=== PATIENT | female | born 1990 | race Two or more races ===

== ENCOUNTER 2024-11-17 20:52 | Emergency (ER) | payer BC ==
[~2024-11-17] VITALS: Ht 165.1 cm; Wt 76.2 kg
[2024-11-17 21:15] VITALS: PULSE 101; RESP 18; TEMP 98.5
[2024-11-17] MEDS ORDERED: BACTRIM DS TAB1 EACH PO (21:53)
[2024-11-17 22:05] VITALS: BP 119/83; PULSE 101; RESP 18; TEMP 98.5; O2SAT 99
== END 2024-11-17 22:05 | disposition home or self-care (01) ==
LOC: FSED 21:37
DX: L02.415 Cutaneous abscess of right lower limb (principal)
CPT/HCPCS: 99283